=== PATIENT | female | born 1965 | race American Indian/Alaskan Native ===

== ENCOUNTER 2016-11-09 09:57 | Outpatient (CLI) | payer OTHER ==
--- NOTE | 2016-11-09 11:15 | Mammography Report ---
BILATERAL MAMMOGRAM: FINDINGS: There are scattered fibroglandular densities (approximately 25%-50% glandular). No mass, distortion, suspicious calcification, or skin change is seen. There is no significant change compared to our prior examination 2011. CAD was utilized. IMPRESSION: Negative mammogram. There is no mammographic evidence of malignancy. RECOMMENDATION: Follow-up per ACS guidelines. BI-RADS CATEGORY: 1 = Negative ACR BI-RADS MAMMOGRAPHIC CODES: 0 = Needs additional imaging evaluation; 1 = Negative; 2 = Benign; 3 = Probably benign; 4 = Suspicious; 5 = Malignant; 6 = Known biopsy-proven malignancy COMMENT: 1. Dense breast tissue, i.e., adenosis, fibrocystic changes, etc., may obscure an underlying neoplasm. 2. Approximately 10% of cancers are not detected with mammography. 3. A negative mammography report should not delay biopsy if a clinically suspicious mass is present. COMMENT: Patient follow-up letters are generated in [employer]
== END 2016-11-09 09:58 | disposition home or self-care (01) ==
LOC: SPVWC 09:57
PROVIDERS: ATTEND Family Medicine
DX: Z12.31 Encounter for screening mammogram for malignant neoplasm of breast (principal)
CPT/HCPCS: 77067; G0202

== ENCOUNTER 2020-03-21 20:15 | Emergency (ER) | payer OTHER, BC ==
--- NOTE | 2020-03-21 22:06 | XRay Report ---
RIGHT LOWER LEG 2 VIEWS INDICATION / CLINICAL INFORMATION: Fall from 10 foot ladder with right lower leg pain. COMPARISON: None available. FINDINGS: BONES / JOINT(S): No acute fracture or subluxation. There is a small plantar calcaneal spur. SOFT TISSUES: No significant abnormality. ADDITIONAL FINDINGS: None. Signer Name: Som Awad MD Signed: 03/21/2020 10:01 PM Workstation Name: [id number]
--- NOTE | 2020-03-21 22:17 | XRay Report ---
RIGHT HUMERUS 2 VIEWS INDICATION / CLINICAL INFORMATION: Fall from 10 foot ladder with right arm pain/laceration. COMPARISON: None available. FINDINGS: BONES / JOINT(S): No acute fracture or subluxation. There are mild degenerative changes involving the acromioclavicular joint. SOFT TISSUES: No significant abnormality. ADDITIONAL FINDINGS: None. Signer Name: Som Awad MD Signed: 03/21/2020 10:12 PM Workstation Name: [id number]
[2020-03-21] MEDS ORDERED: HYDROcodone/ACETAMINOPHEN 5-325 MG TAB PO ONE (22:49)
--- NOTE | 2020-03-21 22:52 | Emergency Department Report ---
ED Fall HPI - General Chief Complaint: Fall Stated Complaint: ARM LEG HEAD PAIN FELL OFF LADDER Time Seen by Provider: 03/21/20 22:34 Source: patient Mode of arrival: Ambulatory Limitations: No Limitations - History of Present Illness Initial Comments: 54-year-old female the past medical history of obesity hypertension currently compliant with BP medications presents to the hospital complaining of right sided shoulder and hip pain status post fall from 10 foot ladder. Injury occurred at work around 3:45 PM. Patient states she fell at the top of a 10 foot ladder landing on her right shoulder. She denies head injury or LOC. She complains of pain to right shoulder and right side of neck as well as right hip. She denies posterior thoracic pain, lower back pain, chest pain, abdominal pain, or headache. Patient was sent by her job to outpatient clinic but she was subsequently sent to the ER for evaluation due to neck pain complaint. Patient is right-hand dominant - Related Data Previous Rx's Medication Instructions Recorded Last Taken Type HYDROcodone/APAP 5-325 [[place] 1 each PO Q6HR PRN #12 tablet 03/22/20 Unknown Rx 5/325] Allergies Allergy/AdvReac Type Severity Reaction Status Date / Time No Known Allergies Allergy Unverified 03/21/20 21:09 ED Review of Systems ROS: Stated complaint: ARM LEG HEAD PAIN FELL OFF LADDER Other details as noted in HPI Comment: All other systems reviewed and negative ED Past Medical Hx - Past Medical History Previous Medical History?: Yes Hx Hypertension: Yes - Surgical History Past Surgical History?: No - Medications Home Medications: Home Medications Medication Instructions Recorded Confirmed Last Taken Type HYDROcodone/APAP 5-325 [[place] 1 each PO Q6HR PRN #12 tablet 03/22/20 Unknown Rx 5/325] ED Physical Exam - General Limitations: No Limitations - Other Other exam information: General: No acute distress Head: Atraumatic Eyes: normal appearance ENT: Moist mucous membranes Neck: Normal appearance, no midline tenderness, right-sided trapezius muscle tenderness extending down to the shoulder Chest: Clear to auscultation bilaterally CV: Regular rate and rhythm Abdomen: Soft, normal bowel sounds, nontender, nondistended, no rebound or guarding Back: Normal inspection, no midline vertebral thoracic or lumbar tenderness to palpation, bilateral flank nontender to palpation Extremity: Tenderness to right shoulder and pain with movement. Tenderness to elbow area laceration but full range of motion of right elbow. Right hip/pro ximal femur tenderness to palpation. Patient able to bear partial weight Neuro: Alert O x 3, no facial asymmetry, speech clear, no gross motor sensory deficit Psych: Appropriate behavior Skin: No rash ED Course Vital Signs 03/21/20 03/22/20 20:59 01:15 Temperature 98.7 F 98.7 F Pulse Rate 76 65 Respiratory 20 18 Rate Blood Pressure 187/103 Blood Pressure 122/76 [Left] O2 Sat by Pulse 100 100 Oximetry - Laceration /Wound Repair Right Arm Wound Location: upper extremity Wound Length (cm): 5 Wound's Depth, Shape: superficial, linear Wound Explored: clean Irrigated w/ Saline (ccs): 50 Betadine Prep?: Yes Wound Repaired With: Steri-strips, Dermabond Progress: Patient had a superficial laceration to her inner forearm distal to the elbow. This was repaired with Steri-Strips and Dermabond. ED Medical Decision Making - Radiology Data Radiology results: report reviewed CT HEAD WITHOUT CONTRAST INDICATION: Pt fell off 10ft ladder, now with LEFT neck pain, headache TECHNIQUE: All CT scans at this location are performed using CT dose reduction for ALARA by means of automated exposure control. COMPARISON: None available. FINDINGS: BRAIN: No hemorrhage or mass effect are seen. No evidence of acute infarction is noted. ORBITS: Normal as visualized. SOFT TISSUES OF HEAD: Normal. CALVARIUM: Normal. VISUALIZED PARANASAL SINUSES AND MASTOID AIR CELLS: Clear. ADDITIONAL FINDINGS: None. IMPRESSION: No acute intracranial abnormality. CT CERVICAL SPINE WITHOUT CONTRAST INDICATION: Pt fell off 10ft ladder, now with LEFT neck pain TECHNIQUE: All CT scans at this location are performed using CT dose reduction for ALARA by means of automated exposure control. Axial CT images were obtained through the cervical spine. Sagittal and coronal reformatted images were produced. COMPARISON: None available. Cervical spine findings: No fractures or subluxation are seen. Degenerative changes with moderate disc space narrowing are seen at C5-6. No significant facet arthritic changes are seen. C1 to mild arthritic changes are noted. No obvious disc herniation is seen. Additional findings: None. IMPRESSION: No acute findings. RIGHT SHOULDER 3 VIEWS 2317 INDICATION: shoulder pain after fall COMPARISON: None available. FINDINGS: No fractures or dislocation are seen. Mild glenohumeral degenerative changes are noted. RIGHT ELBOW 3 VIEWS 2315 INDICATION: pain after fall COMPARISON: None available. FINDINGS: Negative study RIGHT HIP 2 VIEWS 2320 INDICATION: Hip pain after fall COMPARISON: None available. FINDINGS: No fractures or dislocations are seen. RIGHT LOWER LEG 2 VIEWS INDICATION / CLINICAL INFORMATION: Fall from 10 foot ladder with right lower leg pain. COMPARISON: None available. FINDINGS: BONES / JOINT(S): No acute fracture or subluxation. There is a small plantar calcaneal spur. SOFT TISSUES: No significant abnormality. ADDITIONAL FINDINGS: None. RIGHT HUMERUS 2 VIEWS INDICATION / CLINICAL INFORMATION: Fall from 10 foot ladder with right arm pain/laceration. COMPARISON: None available. FINDINGS: BONES / JOINT(S): No acute fracture or subluxation. There are mild degenerative changes involving the acromioclavicular joint. SOFT TISSUES: No significant abnormality. ADDITIONAL FINDINGS: None. - Medical Decision Making BP improved with pain control after [place]. Patient reexamined several times prior to receiving pain medication and continues only complaint of pain to right shoulder and right hip without flank or abdominal pain. Patient will be discharged home with pain medication for muscle skeletal pain. She received lacerations repaired with Steri-Strips and Dermabond tetanus up-to-date Critical Care Time: No Critical care attestation.: If time is entered above; I have spent that time in minutes in the direct care of this critically ill patient, excluding procedure time. ED Disposition Clinical Impression: Fall from ladder, Contusion of shoulder, right, Contusion of hip, right, Laceration of forearm, right Disposition: -01 TO HOME OR SELFCARE Is pt being admited?: No Does the pt Need Aspirin: No Condition: Stable Instructions: Shoulder Sprain (ED), Hip Sprain (ED), Skin Adhesive Care (ED) Additional Instructions: Take the medication as prescribed. Follow-up with your doctor or doctor/clinic provided. Return if symptoms worsen as indicated by your discharge instructions. Prescriptions: HYDROcodone/APAP 5-325 [[place] 5/325] 1 each PO Q6HR PRN #12 tablet PRN Reason: Pain Referrals: PRIMARY CARE, [Primary Care Provider] - 3-5 Days JAQUELIN RUBIO MD [Staff Physician] - 3-5 Days Forms: Work/School Release Form(ED) Time of Disposition: :
[2020-03-21] MEDS ORDERED: LIDOCAINE 2%/EPINEPHRINE 1:200,000 VIAL (20 ML) INFILTRATI ONE (22:58)
[2020-03-21] MEDS ORDERED: SODIUM CHLORIDE IRRI 500 ML 500 ML IR ONE (22:58)
[2020-03-21] MEDS ORDERED: LIDOCAINE 1%/EPINEPHRINE 1:100,000 VIAL (20 ML) INFILTRATI NR (23:00)
[2020-03-21] MEDS ORDERED: SODIUM CHLORIDE 0.9% IRR 500 ML BOTTLE IR ONE (23:02)
--- NOTE | 2020-03-21 23:42 | XRay Report ---
RIGHT SHOULDER 3 VIEWS 2317 INDICATION: shoulder pain after fall COMPARISON: None available. FINDINGS: No fractures or dislocation are seen. Mild glenohumeral degenerative changes are noted. RIGHT ELBOW 3 VIEWS 2315 INDICATION: pain after fall COMPARISON: None available. FINDINGS: Negative study RIGHT HIP 2 VIEWS 2320 INDICATION: Hip pain after fall COMPARISON: None available. FINDINGS: No fractures or dislocations are seen. Signer Name: Saul Hand MD Signed: 03/21/2020 11:37 PM Workstation Name: [id number]
--- NOTE | 2020-03-22 00:06 | Cat Scan Report ---
CT HEAD WITHOUT CONTRAST INDICATION: Pt fell off 10ft ladder, now with LEFT neck pain, headache TECHNIQUE: All CT scans at this location are performed using CT dose reduction for ALARA by means of automated exposure control. COMPARISON: None available. FINDINGS: BRAIN: No hemorrhage or mass effect are seen. No evidence of acute infarction is noted. ORBITS: Normal as visualized. SOFT TISSUES OF HEAD: Normal. CALVARIUM: Normal. VISUALIZED PARANASAL SINUSES AND MASTOID AIR CELLS: Clear. ADDITIONAL FINDINGS: None. IMPRESSION: No acute intracranial abnormality. CT CERVICAL SPINE WITHOUT CONTRAST INDICATION: Pt fell off 10ft ladder, now with LEFT neck pain TECHNIQUE: All CT scans at this location are performed using CT dose reduction for ALARA by means of automated exposure control. Axial CT images were obtained through the cervical spine. Sagittal and co josé reformatted images were produced. COMPARISON: None available. Cervical spine findings: No fractures or subluxation are seen. Degenerative changes with moderate dis c space narrowing are seen at C5-6. No significant facet arthritic changes are seen. C1 to mild arthr itic changes are noted. No obvious disc herniation is seen. Additional findings: None. IMPRESSION: No acute findings. Signer Name: Saul Hand MD Signed: 03/22/2020 12:01 AM Workstation Name: [id number]
[2020-03-22 01:16] VITALS: BP 122/76
== END 2020-03-22 01:45 | disposition home or self-care (01) ==
LOC: ED 20:15
DX: S51.811A Laceration without foreign body of right forearm, initial encounter (principal); S70.01XA Contusion of right hip, initial encounter; S40.011A Contusion of right shoulder, initial encounter; F17.200 Nicotine dependence, unspecified, uncomplicated; I10 Essential (primary) hypertension; Z79.899 Other long term (current) drug therapy; W11.XXXA Fall on and from ladder, initial encounter; Y93.89 Activity, other specified; Y92.89 Other specified places as the place of occurrence of the external cause; Y99.8 Other external cause status
CPT/HCPCS: 70450; 72125